=== PATIENT | female | born 1955 | race Caucasian/White ===

== ENCOUNTER 2016-12-01 17:05 | Inpatient (IN) | payer OTHER, BC ==
[~2016-12-01] VITALS: Ht 167.6 cm; Wt 118.8 kg
[~2016-12-01 17:05] MED LIST: ADVAIR 250/501 DISK IH; ASPIRIN325 MG PO; EXCEDRIN MIGRA1 EAC3 PO; HYDROCODON-ACE1 EAC8 PO; KEFLEX500 MG PO; LO-DOSE ASPIRIN81 M1 PO; MOBIC15 MG PO; NEXIUM40 MG PO; NORCO 5/3251 TABLET; NORCO 7.5/321 TABLET PO; PARAFON FORTE500 MG PO; PAXIL10 MG PO; PAXIL20 MG PO; PERCOCET 5-3251 EACH PO; PERCOCET 5/31 TABLET PO; Proventil,Ventolin H IH; SINGULAIR10 MG PO; SPIRIVA1 INHALATI; STIOLTO IH; TYLENOL WITH C1 EACH PO; XANAX0.5 MG PO; XYLOCAINE VISC100 ML MM
[2016-12-01 17:49] LABS: HEMATOCRIT 45.9 % (36.0-46.0); MCH 23.4 PG (29.0-34.0); MCHC 30.3 G/DL (30.0-36.0); MCV 77.4 FL (83-99); MEAN PLAT.VOLUME 10.1 uM^3 (9.5-12.4); PLATELET COUNT 340 K/uL (156-360); RBC DIS.WIDTH-CV 20.5 % (11.8-14.6); RBC DIS.WIDTH-SD 54.4 % (39-53); RED BLOOD COUNT 5.93 M/uL (3.80-5.20)
[2016-12-01 17:51] LABS: WHITE BLOOD COUNT 19.2 K/uL (4.1-10.2)
[2016-12-01 17:52] LABS: EOSINOPHIL (%) 0.1 % (0-5); IMMATURE GRANULOCYTE (%) 0.6 % (0.0-0.7); IMMATURE GRANULOCYTE COUNT 0.1 K/uL; INSTRUMENT ABS NEUTROPHIL CT 17.3 K/uL; LYMPHOCYTE COUNT 1.1 K/uL (1.0-2.8); MONOCYTE (%) 3.9 % (3-12); MONOCYTE COUNT 0.8 K/uL (0-0.8); NEUTROPHIL (%) 89.6 % (45-76); NEUTROPHIL COUNT 17.3 K/uL (1.8-6.4)
[2016-12-01 18:00] LABS: CHLORIDE 99 mEq/L (99-109); POTASSIUM 3.9 mEq/L (3.7-5.4); SODIUM 137 mEq/L (136-147)
[2016-12-01 18:01] LABS: D-DIMER ELISA 1.83 mg/L FEU (< 0.57)
[2016-12-01 18:02] LABS: GLUCOSE 118 mg/dL (70-99)
[2016-12-01 18:04] LABS: ANION GAP 13 MEQ/L (2-14)
[2016-12-01 18:06] LABS: GFR ESTIMATE (CALCULATED) > 59 mL/min/
[2016-12-01 18:07] LABS: UREA NITROGEN (BUN) 9 mg/dL (9-23)
[2016-12-01 18:10] LABS: TROP-I INTERPRETATION NEGATIVE; TROPONIN-I < 0.01 ng/mL (0.0-0.30)
[2016-12-01] MEDS ORDERED: PROAIR HFA8.5 GM IH (19:03)
[2016-12-01] MEDS ORDERED: ANORO ELLIPTA1 EACH IH (19:04)
[2016-12-01] MEDS ORDERED: HYDROCODON-ACE1 EAC9 PO (19:06)
[2016-12-01] MEDS ORDERED: XANAX1 MG PO (19:08)
[2016-12-01 21:56] VITALS: BP 109/68
[2016-12-02 00:06] VITALS: BP 130/65
[2016-12-02 03:03] VITALS: BP 131/62
[2016-12-02 06:53] LABS: BASOPHIL COUNT 0.1 K/uL (0-0.1); EOSINOPHIL (%) 0 % (0-5); HEMATOCRIT 46.7 % (36.0-46.0); IMMATURE GRANULOCYTE (%) 1.2 % (0.0-0.7); IMMATURE GRANULOCYTE COUNT 0.3 K/uL; MCH 23.5 PG (29.0-34.0); MCHC 30.2 G/DL (30.0-36.0); MEAN PLAT.VOLUME 9.7 uM^3 (9.5-12.4); MONOCYTE COUNT 0.5 K/uL (0-0.8); NEUTROPHIL (%) 92.9 % (45-76); PLATELET COUNT 339 K/uL (156-360); RBC DIS.WIDTH-CV 20.3 % (11.8-14.6); RBC DIS.WIDTH-SD 54.5 % (39-53); RED BLOOD COUNT 5.99 M/uL (3.80-5.20)
[2016-12-02 06:54] LABS: WHITE BLOOD COUNT 26.9 K/uL (4.1-10.2)
[2016-12-02 07:13] LABS: ANION GAP 10 MEQ/L (2-14); CHLORIDE 98 MEQ/L (99-109); GFR ESTIMATE (CALCULATED) > 59 mL/min/; GLUCOSE 160 mg/dL (70-99); SAMPLE HEMOLYSIS CHECK 0; SAMPLE ICTERIC CHECK 0; SAMPLE LIPEMIA CHECK 0; SODIUM 137 MEQ/L (136-147); UREA NITROGEN (BUN) 10 mg/dL (9-23)
[2016-12-02 07:14] LABS: POTASSIUM 4.9 MEQ/L (3.7-5.4)
[2016-12-02 07:41] VITALS: BP 138/63
[2016-12-02 08:49] LABS: FERRITIN 102 NG/ML (10-291)
[2016-12-02 09:49] LABS: INTERNAL CONTROL VALID? YES
[2016-12-02 18:57] VITALS: BP 99/63
[2016-12-02 22:52] VITALS: BP 108/62
[2016-12-03 02:38] VITALS: BP 119/58
[2016-12-03 05:57] LABS: ALKALINE PHOSPHATASE 71 IU/L (3-129); ANION GAP 7 MEQ/L (2-14); CHLORIDE 98 MEQ/L (99-109); GFR ESTIMATE (CALCULATED) > 59 mL/min/; GLUCOSE 199 mg/dL (70-99); POTASSIUM 4.2 MEQ/L (3.7-5.4); SAMPLE HEMOLYSIS CHECK 0; SAMPLE ICTERIC CHECK 0; SAMPLE LIPEMIA CHECK 0; SODIUM 135 MEQ/L (136-147); UREA NITROGEN (BUN) 13 mg/dL (9-23)
[2016-12-03 06:01] LABS: TOTAL BILIRUBIN 0.3 MG/DL (0.0-1.0)
[2016-12-03 06:17] LABS: EOSINOPHIL (%) 0 % (0-5); IMMATURE GRANULOCYTE (%) 0.9 % (0.0-0.7); IMMATURE GRANULOCYTE COUNT 0.2 K/uL; INSTRUMENT ABS NEUTROPHIL CT 19.4 K/uL; LYMPHOCYTE COUNT 0.8 K/uL (1.0-2.8); MCH 22.9 PG (29.0-34.0); MCHC 29.5 G/DL (30.0-36.0); MCV 77.7 FL (83-99); MEAN PLAT.VOLUME 10.2 uM^3 (9.5-12.4); MONOCYTE (%) 2.9 % (3-12); MONOCYTE COUNT 0.6 K/uL (0-0.8); NEUTROPHIL (%) 92.5 % (45-76); NEUTROPHIL COUNT 19.4 K/uL (1.8-6.4); PLATELET COUNT 275 K/uL (156-360); RBC DIS.WIDTH-CV 20.2 % (11.8-14.6); RBC DIS.WIDTH-SD 55.8 % (39-53); RED BLOOD COUNT 5.02 M/uL (3.80-5.20); WHITE BLOOD COUNT 20.9 K/uL (4.1-10.2)
[2016-12-03 08:29] VITALS: BP 124/53
[2016-12-03 12:29] VITALS: BP 106/55
[2016-12-03 17:07] VITALS: BP 116/65
[2016-12-03 19:23] VITALS: BP 118/63
[2016-12-03 22:43] VITALS: BP 116/77
[2016-12-04 02:48] VITALS: BP 113/55
[2016-12-04 06:31] LABS: EOSINOPHIL (%) 0 % (0-5); HEMATOCRIT 36.8 % (36.0-46.0); IMMATURE GRANULOCYTE COUNT 0.2 K/uL; INSTRUMENT ABS NEUTROPHIL CT 17.6 K/uL; LYMPHOCYTE COUNT 0.7 K/uL (1.0-2.8); MCH 23.3 PG (29.0-34.0); MCHC 30.4 G/DL (30.0-36.0); MCV 76.7 FL (83-99); MEAN PLAT.VOLUME 10.6 uM^3 (9.5-12.4); MONOCYTE (%) 2.4 % (3-12); MONOCYTE COUNT 0.5 K/uL (0-0.8); NEUTROPHIL COUNT 17.6 K/uL (1.8-6.4); PLATELET COUNT 307 K/uL (156-360); WHITE BLOOD COUNT 18.9 K/uL (4.1-10.2)
[2016-12-04 06:54] LABS: ANION GAP 8 MEQ/L (2-14); CHLORIDE 102 MEQ/L (99-109); GFR ESTIMATE (CALCULATED) > 59 mL/min/; GLUCOSE 204 mg/dL (70-99); POTASSIUM 4.6 MEQ/L (3.7-5.4); SAMPLE HEMOLYSIS CHECK 0; SAMPLE ICTERIC CHECK 0; SAMPLE LIPEMIA CHECK 0; SODIUM 138 MEQ/L (136-147); UREA NITROGEN (BUN) 12 mg/dL (9-23)
[2016-12-04 07:02] VITALS: BP 99/54
[2016-12-04 11:06] VITALS: BP 125/61
[2016-12-04 15:52] VITALS: BP 126/60
[2016-12-04 19:22] VITALS: BP 123/67
[2016-12-04 23:35] VITALS: BP 114/67; BP 126/61
[2016-12-05 06:19] LABS: EOSINOPHIL (%) 0 % (0-5); HEMATOCRIT 34.8 % (36.0-46.0); IMMATURE GRANULOCYTE (%) 0.7 % (0.0-0.7); IMMATURE GRANULOCYTE COUNT 0.1 K/uL; INSTRUMENT ABS NEUTROPHIL CT 14.3 K/uL; LYMPHOCYTE COUNT 1.1 K/uL (1.0-2.8); MCH 23.2 PG (29.0-34.0); MCHC 30.5 G/DL (30.0-36.0); MCV 76.1 FL (83-99); MEAN PLAT.VOLUME 10.6 uM^3 (9.5-12.4); MONOCYTE (%) 3.8 % (3-12); MONOCYTE COUNT 0.6 K/uL (0-0.8); NEUTROPHIL (%) 88.7 % (45-76); NEUTROPHIL COUNT 14.3 K/uL (1.8-6.4); PLATELET COUNT 316 K/uL (156-360); RBC DIS.WIDTH-CV 20.2 % (11.8-14.6); RBC DIS.WIDTH-SD 55.5 % (39-53); RED BLOOD COUNT 4.57 M/uL (3.80-5.20); WHITE BLOOD COUNT 16.1 K/uL (4.1-10.2)
[2016-12-05 06:57] LABS: ALKALINE PHOSPHATASE 58 IU/L (3-129); ANION GAP 8 MEQ/L (2-14); CHLORIDE 102 MEQ/L (99-109); GFR ESTIMATE (CALCULATED) > 59 mL/min/; GLUCOSE 177 mg/dL (70-99); SAMPLE HEMOLYSIS CHECK 0; SAMPLE ICTERIC CHECK 0; SAMPLE LIPEMIA CHECK 0; SODIUM 138 MEQ/L (136-147); TOTAL BILIRUBIN 0.3 MG/DL (0.0-1.0); UREA NITROGEN (BUN) 12 mg/dL (9-23)
[2016-12-05 07:22] VITALS: BP 129/66
[2016-12-05 11:20] VITALS: BP 123/66
[2016-12-05 15:41] VITALS: BP 126/66
[2016-12-05 19:14] VITALS: BP 111/56
[2016-12-05 22:55] VITALS: BP 114/58
[2016-12-06 06:41] LABS: EOSINOPHIL (%) 0.2 % (0-5); HEMATOCRIT 37.3 % (36.0-46.0); IMMATURE GRANULOCYTE COUNT 0.1 K/uL; INSTRUMENT ABS NEUTROPHIL CT 7.9 K/uL; MCH 22.7 PG (29.0-34.0); MCHC 29.5 G/DL (30.0-36.0); MCV 76.9 FL (83-99); MEAN PLAT.VOLUME 10.7 uM^3 (9.5-12.4); MONOCYTE (%) 5.8 % (3-12); MONOCYTE COUNT 0.7 K/uL (0-0.8); NEUTROPHIL COUNT 7.9 K/uL (1.8-6.4); PLATELET COUNT 323 K/uL (156-360); RBC DIS.WIDTH-CV 21.1 % (11.8-14.6); RBC DIS.WIDTH-SD 56.7 % (39-53); RED BLOOD COUNT 4.85 M/uL (3.80-5.20); WHITE BLOOD COUNT 11.8 K/uL (4.1-10.2)
[2016-12-06 07:09] LABS: ALKALINE PHOSPHATASE 54 IU/L (3-129); ANION GAP 5 MEQ/L (2-14); CHLORIDE 101 MEQ/L (99-109); GFR ESTIMATE (CALCULATED) > 59 mL/min/; POTASSIUM 4.8 MEQ/L (3.7-5.4); SAMPLE HEMOLYSIS CHECK 0; SAMPLE ICTERIC CHECK 0; SAMPLE LIPEMIA CHECK 0; SODIUM 139 MEQ/L (136-147); UREA NITROGEN (BUN) 12 mg/dL (9-23)
[2016-12-06 07:10] LABS: GLUCOSE 105 mg/dL (70-99); TOTAL BILIRUBIN 0.4 MG/DL (0.0-1.0)
[2016-12-06 07:22] VITALS: BP 102/61
[2016-12-06] MEDS ORDERED: MEDROL DOSEPAK4 MG PO (07:41)
[2016-12-06] MEDS ORDERED: NICOTINE PATCH1 EAC2 TD (07:41)
[2016-12-06] MEDS ORDERED: LEVAQUIN750 MG PO (07:41)
== END 2016-12-06 12:10 | disposition home or self-care (01) | DRG 194 ==
LOC: EME 17:05 → 5EAST 19:36 → EDOF 19:36 → 5EAST 21:23
PROVIDERS: Emergency Medicine; Internal Medicine; Nurse Practitioner Adult Health; Physician Assistant
DX: J18.9 Pneumonia, unspecified organism (principal); J44.1 Chronic obstructive pulmonary disease with (acute) exacerbation; J90 Pleural effusion, not elsewhere classified; S22.42XA Multiple fractures of ribs, left side, initial encounter for closed fracture; E66.01 Morbid (severe) obesity due to excess calories; E11.9 Type 2 diabetes mellitus without complications; F17.200 Nicotine dependence, unspecified, uncomplicated; G47.33 Obstructive sleep apnea (adult) (pediatric); F32.9 Major depressive disorder, single episode, unspecified; F41.9 Anxiety disorder, unspecified; M79.7 Fibromyalgia; G89.29 Other chronic pain; M54.5 Low back pain; K21.9 Gastro-esophageal reflux disease without esophagitis; G43.909 Migraine, unspecified, not intractable, without status migrainosus; K59.00 Constipation, unspecified; Z91.81 History of falling; Z85.44 Personal history of malignant neoplasm of other female genital organs; Z85.89 Personal history of malignant neoplasm of other organs and systems
CPT/HCPCS: 36415; 71010; 71020; 71275; 76604; 80048; 80053; 80061; 80069; 80076; 81003; 82043; 82570; 82728; 83036; 83605; 84443; 84484; 85025; 85379; 87040; 87070; 87205; 87449; 93005; 94640; 94640 76; 94799; 99202; 99281; 99285; J0456; J0696; J1644; J2270; J2930; J7030; J7050; J7512; J7644

== ENCOUNTER 2016-12-13 10:48 | Inpatient (IN) | payer OTHER, BC ==
[~2016-12-13] VITALS: Ht 167.6 cm; Wt 117.4 kg
[~2016-12-13 10:48] MED LIST changes: +ANORO ELLIPTA1 EACH IH; +HYDROCODON-ACE1 EAC9 PO; +LEVAQUIN750 MG PO; +MEDROL DOSEPAK4 MG PO; +NICOTINE PATCH1 EAC2 TD; +PROAIR HFA8.5 GM IH; +XANAX1 MG PO
[2016-12-13 11:59] LABS: EOSINOPHIL (%) 0 % (0-5); IMMATURE GRANULOCYTE (%) 1.6 % (0.0-0.7); IMMATURE GRANULOCYTE COUNT 0.3 K/uL; INSTRUMENT ABS NEUTROPHIL CT 16.2 K/uL; LYMPHOCYTE COUNT 1.6 K/uL (1.0-2.8); MCH 23.3 PG (29.0-34.0); MCHC 29.8 G/DL (30.0-36.0); MCV 78.2 FL (83-99); MEAN PLAT.VOLUME 10.3 uM^3 (9.5-12.4); MONOCYTE (%) 5.4 % (3-12); NEUTROPHIL (%) 84.3 % (45-76); NEUTROPHIL COUNT 16.2 K/uL (1.8-6.4); PLATELET COUNT 392 K/uL (156-360); RBC DIS.WIDTH-CV 22.7 % (11.8-14.6); RBC DIS.WIDTH-SD 61.6 % (39-53); RED BLOOD COUNT 5.24 M/uL (3.80-5.20); WHITE BLOOD COUNT 19.3 K/uL (4.1-10.2)
[2016-12-13 12:05] LABS: CHLORIDE 99 mEq/L (99-109); POTASSIUM 3.9 mEq/L (3.7-5.4); SODIUM 136 mEq/L (136-147)
[2016-12-13 12:07] LABS: GLUCOSE 149 mg/dL (70-99)
[2016-12-13 12:08] LABS: ANION GAP 10 MEQ/L (2-14)
[2016-12-13 12:10] LABS: GFR ESTIMATE (CALCULATED) > 59 mL/min/
[2016-12-13 12:11] LABS: UREA NITROGEN (BUN) 9 mg/dL (9-23)
[2016-12-13] MEDS ORDERED: LITE COAT ASPI325 M1 PO (14:49)
[2016-12-13] MEDS ORDERED: NEXIUM40 MG PO (14:50)
[2016-12-13] MEDS ORDERED: ADVAIR 500/501 DISK IH (14:51)
[2016-12-13 18:15] VITALS: BP 137/65
[2016-12-13 19:24] VITALS: BP 126/64
[2016-12-13 19:44] LABS: INTER. NORMALIZED RATIO 1.1; PROTHROMBIN TIME 10.8 (9.2-11.2); PTT 33.3 (25-32)
[2016-12-13 21:40] LABS: TYPE OF FLUID THORACENTESIS
[2016-12-13 21:43] VITALS: BP 128/70
[2016-12-13 22:14] LABS: BODY FLUID PROTEIN 4.3 G/DL
[2016-12-13 22:30] LABS: BODY FLUID EOSINOPHILS 2 % (0-25); BODY FLUID RBC'S 9000 /MM^3 (0-100); BODY FLUID WBC'S 745 /MM^3 (0-500); COMMENT MODERATE MESOTHELIAL CELLS SEEN; MONONUCLEAR WBC'S 81 %; POLYNUCLEAR WBC'S 17 % (0-25)
[2016-12-13 23:06] VITALS: BP 121/70
[2016-12-14 04:13] VITALS: BP 118/65
[2016-12-14 06:56] VITALS: BP 121/73
[2016-12-14 11:10] VITALS: BP 118/56
[2016-12-14 11:13] LABS: POINT-OF-CARE METER ID UU14174216
[2016-12-14 15:11] VITALS: BP 119/56
[2016-12-14 16:34] LABS: POINT-OF-CARE METER ID UU14174216
[2016-12-14 20:00] VITALS: BP 119/56
[2016-12-14 22:08] LABS: METH RESISTANT S AUREUS PCR NEGATIVE (NEGATIVE)
[2016-12-14 22:12] LABS: PROBE CHECK PASS; SPECIMEN PROCESSING CONTROL PASS
[2016-12-14 22:22] LABS: POINT-OF-CARE USER ID NUTSLF44
[2016-12-14 23:55] VITALS: BP 118/58
[2016-12-15 04:00] VITALS: BP 102/56
[2016-12-15 07:45] VITALS: BP 139/67
[2016-12-15 11:23] VITALS: BP 127/60
[2016-12-15 15:47] VITALS: BP 133/60
[2016-12-15 20:00] VITALS: BP 122/58
[2016-12-15 20:53] LABS: POINT-OF-CARE USER ID ENVMNS
[2016-12-15 23:57] VITALS: BP 142/66
[2016-12-16 04:00] VITALS: BP 140/63
[2016-12-16 08:00] VITALS: BP 133/58
[2016-12-16 12:00] VITALS: BP 123/65
[2016-12-16 16:00] VITALS: BP 136/82
[2016-12-16 20:09] VITALS: BP 125/69
[2016-12-16 23:55] VITALS: BP 134/89
[2016-12-17 04:00] VITALS: BP 137/68
[2016-12-17 07:51] VITALS: BP 130/62
[2016-12-17] MEDS ORDERED: BACTRIM,SEPT1 TABLET PO (09:20)
[2016-12-17] MEDS ORDERED: DUONEB 2.5-0.5 M3 ML AEROSOL (09:20)
[2016-12-17] MEDS ORDERED: ALBUTEROL2.5 MG/3 M IH (09:20)
[2016-12-17] MEDS ORDERED: LEVAQUIN750 MG PO (09:20)
== END 2016-12-17 10:15 | disposition home or self-care (01) | DRG 194 ==
LOC: EME 10:48 → 3EAST 14:36 → 4EAST 14:36 → EDOF 14:36 → 3EAST 18:10 → 4EAST 21:48
PROVIDERS: Emergency Medicine; Internal Medicine Infectious Disease; Pediatrics; Physician Assistant
PROC: 0W9B3ZZ Drainage of Left Pleural Cavity, Percutaneous Approach (ICD-10-PCS; principal; 2016-12-13)
DX: J18.9 Pneumonia, unspecified organism (principal); J44.1 Chronic obstructive pulmonary disease with (acute) exacerbation; J90 Pleural effusion, not elsewhere classified; Z68.41 Body mass index [BMI] 40.0-44.9, adult; J98.19 Other pulmonary collapse; E11.9 Type 2 diabetes mellitus without complications; F32.9 Major depressive disorder, single episode, unspecified; M54.12 Radiculopathy, cervical region; M79.7 Fibromyalgia; F41.9 Anxiety disorder, unspecified; G89.29 Other chronic pain; F17.210 Nicotine dependence, cigarettes, uncomplicated; K21.9 Gastro-esophageal reflux disease without esophagitis; K44.9 Diaphragmatic hernia without obstruction or gangrene; G47.00 Insomnia, unspecified; M19.90 Unspecified osteoarthritis, unspecified site; G47.30 Sleep apnea, unspecified; R09.02 Hypoxemia; E66.9 Obesity, unspecified; M54.9 Dorsalgia, unspecified; Z96.659 Presence of unspecified artificial knee joint
CPT/HCPCS: 71010; 71020; 71250; 80048; 82150 91; 82945; 82948; 84157; 85025; 85610; 85730; 87040; 87070; 87075; 87205; 87641; 89051; 93005; 94640; 94640 76; 94760; 94799; 99202; 99281; 99285; J0692; J1100; J1644; J1815; J2270; J2543; J2930; J3370; J7050; J7644

== ENCOUNTER → 2018-01-24 | Outpatient (CLI) | payer OTHER, BC ==
[~2018-01-24] MED LIST changes: +ADVAIR 500/501 DISK IH; +ALBUTEROL2.5 MG/3 M IH; +BACTRIM,SEPT1 TABLET PO; +DUONEB 2.5-0.5 M3 ML AEROSOL; +LITE COAT ASPI325 M1 PO
== END | disposition home or self-care (01) ==
LOC: NUC 07:44
DX: M19.032 Primary osteoarthritis, left wrist (principal); M19.031 Primary osteoarthritis, right wrist; M19.072 Primary osteoarthritis, left ankle and foot; M19.071 Primary osteoarthritis, right ankle and foot; R93.7 Abnormal findings on diagnostic imaging of other parts of musculoskeletal system; Z96.653 Presence of artificial knee joint, bilateral; T84.84XA Pain due to internal orthopedic prosthetic devices, implants and grafts, initial encounter; Z85.44 Personal history of malignant neoplasm of other female genital organs; Z98.890 Other specified postprocedural states; Z85.828 Personal history of other malignant neoplasm of skin
CPT/HCPCS: 78315; A9503

== ENCOUNTER → 2018-03-19 | Outpatient (CLI) | payer OTHER, BC | END | disposition home or self-care (01) | LOC: RAD 08:37 | DX: M25.462 Effusion, left knee (principal); M89.8X6 Other specified disorders of bone, lower leg; Z96.652 Presence of left artificial knee joint | CPT/HCPCS: 73700 ==